=== PATIENT | male | born 1960 | race Caucasian/White ===

== ENCOUNTER 2016-11-14 09:49 | Outpatient (CLI) | payer OTHER | END 2016-11-14 09:50 | disposition critical access hospital (66) | LOC: EMS 09:49 | PROVIDERS: ATTEND Surgery | DX: R11.2 Nausea with vomiting, unspecified (principal); R42 Dizziness and giddiness | CPT/HCPCS: A0425; A0427 ==

== ENCOUNTER 2016-11-14 10:13 | Observation (INO) | payer OTHER ==
[2016-11-14] MEDS ORDERED: MECLIZINE 12.5 MG TABLET PO STA ×2 (10:25→16:54)
[2016-11-14] MEDS ORDERED: ONDANSETRON 4 MG/2 ML VIAL IVP STA ×2 (10:25→15:24)
--- NOTE | 2016-11-14 10:29 | ED Physician Documentation ---
History of Present Illness - Stated complaint Stated Complaint: CP, SOA, N/V - Chief complaint Chief Complaint: General - Additonal information Additional information: hx from pt 56 male Rebecca approx 2 AM had a few min of vertigo and nausea got better then return severe and with vomiting and sweats about 8 AM [facility] sent him to the ER had a JAIN but not ow no fever no new meds recent travel for work to [facility] and [facility] - per pt no [facility] infectious warnings or prophylaxis no CP SOA or cough no focal numbness or weakness no sick contacts no bad food Review of Systems Constitutional: reports: Sweats. denies: Fever, Chills Throat: denies: Sore throat Cardiac: denies: Chest pain / pressure Respiratory: denies: Dyspnea GI: reports: Nausea, Vomiting. denies: Abdominal Pain Neurologic: reports: Other (vertigo). denies: Focal weakness, Numbness, Headache (not now) Endocrine: denies: Easy bruising / bleeding Immunocompromised: denies: Immunocompromised PD PAST MEDICAL HISTORY - Past Medical History Past Medical History: Yes Cardiovascular: Hypertension - Past Surgical History Past Surgical History: Yes General: Hiatal hernia repair - Present Medications Home Medications: Ambulatory Orders Medication Instructions Recorded Confirmed Dextroamphetamine/Amphetamine 5 mg PO DAILY 03/07/13 11/14/16 [Adderall 7.5 mg Tablet] Aspirin [Aspirin EC] 81 mg PO DAILY 11/14/16 11/14/16 - Allergies Allergies/Adverse Reactions: Allergies Allergy/AdvReac Type Severity Reaction Status Date / Time steri strips Allergy Mild Rash Uncoded 03/07/13 16:15 - Social History Does the pt smoke?: No Smoking Status: Never smoker Does the pt drink ETOH?: Yes Does the pt have substance abuse?: No - Immunizations Immunizations are current?: Yes PD ED PE NORMAL - Vitals Vital signs reviewed: Yes - General General: Alert and oriented X 3, Other (pale and cool to touch) - HEENT HEENT: PERRL, EOMI (nystagmus looking right) - Neck Neck: Supple, no meningeal sign - Cardiac Cardiac: RRR - Respiratory Respiratory: No respiratory distress, Clear bilaterally - Abdomen Abdomen: Soft, Non tender - Derm Derm: Other (pale and cool, not diaphoretic now) - Neuro Neuro: Alert and oriented X 3, embalmer/funeral director 2-12 intact, No motor deficit, No sensory deficit, Normal speech Results - Vitals Vitals: Vital Signs - 24 hr 11/14/16 11/14/16 11/14/16 10:15 10:35 13:42 Temperature 34.3 C L Heart Rate 59 L 58 L 73 Respiratory 16 16 16 Rate Blood Pressure 134/79 H 120/76 123/85 H O2 Saturation 97 97 97 11/14/16 11/14/16 14:14 14:19 Temperature Heart Rate 61 Respiratory 17 Rate Blood Pressure 113/54 L 147/88 H O2 Saturation 99 Oxygen O2 Source Room air - EKG (time done) 1038 Rate: Rate (enter#) (56) Rhythm: NSR [place]: Normal Intervals: Normal [place] QRS: Normal Ischemia: Normal ST segments - Labs Labs: Laboratory Tests 11/14/16 11/14/16 11/14/16 10:32 10:32 10:32 WBC 7.6 RBC 4.75 Hgb 14.3 Hct 41.6 L MCV 87.5 MCH 30.0 MCHC 34.3 RDW 13.2 Plt Count 191 MPV 7.5 Neut # 5.2 Lymph # 1.8 [place] # 0.4 Eos # 0.1 Baso # 0.0 Absolute Nucleated RBC 0.00 Nucleated RBC % 0.0 Sodium 138 Potassium 4.2 Chloride 105 Carbon Dioxide 26 Anion Gap 7.0 BUN 19 Creatinine 1.0 Estimated GFR (MDRD) 77 L Glucose 131 H Calcium 8.7 Troponin I < 0.04 - Rads (name of study) CTH Radiology: See rad report (no acute) PD MEDICAL DECISION MAKING - ED course Complexity details: re-evaluated patient ED course: pt with continued sx despite meclizine fluids zofran ofirmev, he is still very vertiginous, nauseated with vomiting whenever he moves, diffusely weak got a CT - no acute sx still severe cannot dc with such severe sx may need MRI if sx persist spoke to hospitalist approx 1640 - will place in obs, pt and family updated as well Departure - Departure Disposition: ED Place in Observation Clinical Impression: Vestibular disequilibrium Discharge Date/Time: 11/14/16 17:14
[2016-11-14] MEDS ORDERED: MECLIZINE 12.5 MG TABLET PO ONE (10:33)
[2016-11-14] MEDS ORDERED: ONDANSETRON 4 MG/2 ML VIAL ONE ×2 (10:33→15:36)
[2016-11-14 10:39] LABS: BASOPHILS % (AUTO) 0.5 %; EOSINOPHILS # (AUTO) 0.1 10^3/uL (0.0-0.7); EOSINOPHILS % (AUTO) 1.5 %; HCT - HEMATOCRIT 41.6 % (42.0-52.0); HGB - HEMOGLOBIN 14.3 g/dL (14.0-18.0); LYMPHOCYTES # (AUTO) 1.8 10^3/uL (1.5-3.5); LYMPHOCYTES % (AUTO) 24.1 %; MEAN CORPUSCULAR HGB CONC 34.3 g/dL (32.0-36.0); MEAN CORPUSCULAR VOLUME 87.5 fL (80.0-94.0); MEAN PLATELET VOLUME 7.5 fL (7.4-11.4); MONOCYTES # (AUTO) 0.4 10^3/uL (0.0-1.0); MONOCYTES % (AUTO) 5.1 %; NEUTROPHILS # (AUTO) 5.2 10^3/uL (1.5-6.6); NEUTROPHILS % (AUTO) 68.8 %; RED BLOOD COUNT 4.75 10^6/uL (4.70-6.10); RED CELL DISTRIBUTION WIDTH 13.2 % (12.0-15.0); UNCORRECTED WHITE BLOOD COUNT 7.6 x10^3/uL; WHITE BLOOD COUNT 7.6 x10^3/uL (4.8-10.8)
[2016-11-14 10:57] LABS: CALCIUM 8.7 mg/dL (8.5-10.3); POTASSIUM 4.2 mmol/L (3.5-5.0)
--- NOTE | 2016-11-14 14:17 | CT Preliminary Report ---
Exam: CT Head W/O IMPRESSION: Negative for acute or focal intracranial abnormality. [facility] SITE ID: [id number]
--- NOTE | 2016-11-14 14:20 | CT Report ---
EXAM: CT HEAD EXAM DATE: 11/14/2016 01:45 PM. CLINICAL HISTORY: Intractable vertigo. COMPARISON: None. TECHNIQUE: Multiaxial CT images were obtained from the foramen magnum to the vertex. IV contrast: Non e. Reformats: Coronal. In accordance with CT protocol optimization, one or more of the following dose reduction techniques w ere utilized for this exam: automated exposure control, adjustment of mA and/or KV based on patient s ize, or use of iterative reconstructive technique. FINDINGS: Parenchyma: No intraparenchymal hemorrhage. No evidence of mass, midline shift, or CT findings of inf arction. Mitchell-white differentiation is distinct. Extraaxial Spaces: Normal for age. No subdural or epidural collections identified. Ventricles: Normal in size and position. Sinuses: Imaged paranasal sinuses, orbits, and mastoids show no significant abnormality. Bones: No evidence of fracture or calvarial defect. Other: None. IMPRESSION: Negative for acute or focal intracranial abnormality. [facility] Referring Provider Line: [phone] SITE ID: [id number]
[2016-11-14] MEDS ORDERED: ACETAMINOPHEN 1,000 MG/100 ML 100 ML IV STA (15:24)
[2016-11-14] MEDS ORDERED: ACETAMINOPHEN 1,000 MG/100 ML 100 ML IV ONE (15:36)
[2016-11-14] MEDS ORDERED: SODIUM CHLORIDE FLUSH 0.9% 10 ML SYRINGE IVP PRN (16:47)
[2016-11-14] MEDS ORDERED: ACETAMINOPHEN 325 MG TABLET PO PRN (16:47)
[2016-11-14] MEDS ORDERED: PROCHLORPERAZINE 10 MG/2 ML VIAL IVP PRN (16:47)
[2016-11-14] MEDS ORDERED: ONDANSETRON 4 MG/2 ML VIAL IVP PRN (16:47)
[2016-11-14] MEDS ORDERED: MECLIZINE 12.5 MG TABLET PO PRN (16:56)
--- NOTE | 2016-11-14 17:05 | HISTORY & PHYSICAL EXAMINATION ---
Chief Complaint - Chief Complaint Chief Complaint: vertigo History of Present Illness - Admitted From Admitted From:: emergence department - History Obtained From History obtained from: patient - History of Present Illness HPI Comment/Other: This is a 56-year-old male with a past medical history significant for HTN, chronic headache, who present emergence department for evaluation of vertigo. Pt report he recently had business travel to [facility] two countries [facility] from 10/18/16 to 11/01/16. He felt fine until today morning about 2:30 am, he felt his house spinning and follow up with strong nausea. Then at today morning about 8am, he had a extensive sweating. He works at [employer], the [employer] sent him to this Emergence department. Patient report he had a second vertigo when he was sent to do CT test in the ER, which last a few minutes with strong nausea but no vomiting. Patient report he had history of chronic headache but today he did not have a strong headache. Patient denies fever, chill, chest pain, shortness of breathing, abdominal pain, diarrhea, vision changing, urinary issue, focal neurological deficit, brain injury. CT of head is unremarkable. Lab test is unremarkable. Patient's vital is stable. Patient is admitted in observation floor for further evaluation of vertigo History - Past Medical History Cardiovascular: reports: Hypertension - Past Surgical History General: reports: Hiatal hernia repair - Family & Social History Family History: Mother: Alive and Well (Mom with thyroid problem, Daddy with skin cancer problem), Father: Alive and Well Family History Comment/Other: Pt with his is living the [place]. pt is working at [employer], Patient had two children Living arrangement: At home Living Situation: With spouse/s.o. Social History Notes: pt denies smoking, alcohol, illicit drug abuse - Substance History Use: Uses substance without health or social issues: NONE Dependence: Experiences withdrawal or developed tolerances: NONE - POLST Patient has POLST: No POLST Status: Full Code Meds/Allgy - Home Medications Home Medications: Ambulatory Orders Medication Instructions Recorded Confirmed Dextroamphetamine/Amphetamine 5 mg PO DAILY 03/07/13 11/14/16 [Adderall 7.5 mg Tablet] Aspirin [Aspirin EC] 81 mg PO DAILY 11/14/16 11/14/16 - Allergies Allergies/Adverse Reactions: Allergies Allergy/AdvReac Type Severity Reaction Status Date / Time steri strips Allergy Mild Rash Uncoded 03/07/13 16:15 Review of Systems - Constitutional Constitutional: reports: Diaphoresis. denies: Fever, Chills, Malaise, Weakness , Poor appetite, Night sweats, Weight gain, Weight loss - Eyes Eyes: denies: Pain, Irritation, Amaurosis, Blurred vision, Spots in vision, Field loss, Vision loss, Dipolpia - Ears, Nose & Throat Ears, Nose & Throat: reports: Vertigo. denies: Ear pain, Hearing loss, Hearing aids, Tinnitus, Nasal pain, Nasal discharge, Nosebleeds, Nasal congestion, Postnasal drainage, Sore throat, Hoarseness, Bleeding gums - Cardiovascular Cariovascular: denies: Irregular heart rate, Palpitations, Chest pain, Edema, Lightheadedness, Syncope, Exertional dyspnea, Decr. exercise tolerance - Respiratory Respiratory: denies: Cough, Sputum production, Wheezing, Snoring, Hemoptysis, Orthopnea, SOB at rest, SOB with exertion - Gastrointestinal Gastrointestinal: reports: Nausea. denies: Abdominal pain, Abdominal distention , Constipation, Diarrhea, Change in bowel habits, Rectal bleeding, Black stools , Bloody stools, Vomiting, [place] blood emesis, Coffee grounds emesis, Reflux/ heartburn, Bloating, Poor appetite - Genitourinary Genitourinary: denies: Dysuria, Frequency, Urgency, Hematuria, Incontinence, Flank pain, Nocturia, Urethral discharge - Musculoskeletal Musculoskeletal: denies: Muscle pain, Back pain, Muscle aches, Stiffness, Limited range of motion, Muscle weakness, Gout, Joint pain, Joint swelling - Integumentary Integumentary: denies: Rash, Pruritis, Lesions, Dryness, Lumps, Pigment changes - Neurological Neurological: denies: General weakness, Focal weakness, Headache, Dizziness, Numbness, Memory problems, Pre-existing deficit, Abnormal gait, Seizures, Incoordination, Slurred speech - Psychiatric Psychiatric: denies: Depression, Anxiety, Suicidal, Delusions, Hallucinations, Homicidal - Endocrine Endocrine: denies: Polyuria, Polydypsia, Polyphagia, Intolerance to cold, Intolerance to heat - Hematologic/Lymphatic Hematologic/Lymphatic: denies: Anemia, Bruising, Petechiae, Blood clots, Lymphadenopathy, Bleeding tendencies, Recurrent infections Exam - Vital Signs Reviewed Vital Signs: Yes - Physical Exam General Appearance: positive: No acute distress, Alert. negative: Lethargic Eyes Bilateral: positive: Normal inspection, PERRL, No lid inflammation, Conjunctivae nml ENT: positive: ENT inspection nml, Pharynx nml, No signs of dehydration. negative: Purulent nasal drainage, Pharyngeal erythema, Oral lesions Neck: positive: Nml inspection, Thyroid nml, No JVD, Trachea midline. negative : Thyromegaly, Lymphadenopathy (R), Lymphadenopathy (L), Stiff neck, Swelling/ bruising, Tracheal deviation Respiratory: positive: Chest non-tender, No respiratory distress, Breath sounds nml. negative: Wheezes, Rales, Rhonchi Cardiovascular: positive: Regular rate & rhythm, No murmur, No gallop. negative : Irregularly irregular, Extrasystoles, Tachycardia, Bradycardia, Systolic murmur, Diastolic murmur Peripheral Pulses: positive: 2+ Abdomen: positive: Non-tender, No organomegaly, Nml bowel sounds, No distention. negative: Tenderness, Guarding, Rebound Back: positive: Nml inspection. negative: CVA tenderness (R), CVA tenderness (L ) Skin: positive: Color nml, No rash, Warm, Dry. negative: Cyanosis, Skin rash Extremities: positive: Non-tender, Full ROM, Nml appearance. negative: Pedal edema, Calf tenderness, Ousmane's sign/cords Neurologic/Psychiatric: positive: Oriented x3, Motor nml, Sensation nml, Mood/ affect nml. negative: Weakness, Sensory loss, Facial droop, Slurred/abnml speech, Depressed mood/affect Conclusion/Plan - Problem List (1) Vertigo Conclusion/Plan: most common forum, benign paroxysmal position vertigo, order MRI to see if another etiology fall precaution Antivert PRN (2) Nausea alone Conclusion/Plan: vertigo commonly cause nausea PRN zofran, Compazine clear diet IVF (3) HTN (hypertension) Conclusion/Plan: stable, will resume home meds after reconciliation (4) Headache Conclusion/Plan: chronic but stable today, Tylenol PRN (5) DVT prophylaxis Conclusion/Plan: SCD, pt without mobility limitation - Lab Results Fish Bones: 11/14/16 10:32 11/14/16 10:32 Issues/Core Measures - Anticipated LOS Anticipated Stay Length: Less than 2 midnights (expected less than 2 nights)
[2016-11-14] MEDS: SODIUM CHLORIDE FLUSH 0.9% 10 ML SYRINGE IVP SCH (18:06)
[2016-11-14] MEDS: SODIUM CHLORIDE 0.9% 1,000 ML IV SCH (18:06)
[2016-11-15] MEDS: SODIUM CHLORIDE 0.9% 1,000 ML IV SCH (04:03)
[2016-11-15 05:50] LABS: BASOPHILS % (AUTO) 0.3 %; EOSINOPHILS # (AUTO) 0.1 10^3/uL (0.0-0.7); EOSINOPHILS % (AUTO) 1.1 %; HCT - HEMATOCRIT 41.5 % (42.0-52.0); HGB - HEMOGLOBIN 14.4 g/dL (14.0-18.0); LYMPHOCYTES # (AUTO) 1.9 10^3/uL (1.5-3.5); MEAN CORPUSCULAR HEMOGLOBIN 30.7 pg (27.0-31.0); MEAN CORPUSCULAR HGB CONC 34.6 g/dL (32.0-36.0); MEAN CORPUSCULAR VOLUME 88.8 fL (80.0-94.0); MEAN PLATELET VOLUME 7.9 fL (7.4-11.4); MONOCYTES # (AUTO) 0.5 10^3/uL (0.0-1.0); MONOCYTES % (AUTO) 4.7 %; NEUTROPHILS # (AUTO) 7.5 10^3/uL (1.5-6.6); NEUTROPHILS % (AUTO) 74.9 %; RED BLOOD COUNT 4.68 10^6/uL (4.70-6.10); RED CELL DISTRIBUTION WIDTH 13.5 % (12.0-15.0)
[2016-11-15 05:59] LABS: ALBUMIN/GLOBULIN RATIO 1.3 (1.0-2.2); BILIRUBIN,TOTAL 1.1 mg/dL (0.2-1.0); CALCIUM 8.5 mg/dL (8.5-10.3); CREATININE 0.9 mg/dL (0.6-1.2); MAGNESIUM 1.9 mg/dL (1.7-2.8); POTASSIUM 4.4 mmol/L (3.5-5.0); TOTAL PROTEIN 6.1 g/dL (6.7-8.2)
[2016-11-15] MEDS: SODIUM CHLORIDE FLUSH 0.9% 10 ML SYRINGE IVP SCH ×2 (06:14→13:14)
[2016-11-15] MEDS ORDERED: POLYETHYLENE GLYCOL 3350 17 GM PACKET PO SCH (09:00)
[2016-11-15] MEDS ORDERED: ASPIRIN EC 81 MG TABLET PO SCH (09:00)
[2016-11-15] MEDS ORDERED: FAMOTIDINE 20 MG TABLET PO SCH (09:00)
--- NOTE | 2016-11-15 13:00 | MRI Preliminary Report ---
Exam: MRI Brain W/O IMPRESSION: 1. Normal noncontrast brain MRI. No evidence of infarct, hemorrhage, or mass lesion. SITE ID: [id number]
--- NOTE | 2016-11-15 13:03 | MRI Report ---
EXAM: MRI BRAIN WITHOUT CONTRAST EXAM DATE: 11/15/2016 10:52 AM. CLINICAL HISTORY: 56-year-old man with vertigo. COMPARISON: Noncontrast head CT done 1 day prior. TECHNIQUE: Multiplanar, multisequence T1-weighted and fluid-sensitive MR sequences of the brain were performed. Sequences optimized for routine evaluation. Other: High-resolution axial images were acqui red through the internal auditory canals. IV Contrast: None. FINDINGS: Parenchyma: No evidence of acute infarct on diffusion weighted sequence. The supratentorial and infra tentorial parenchyma demonstrates normal signal intensity on T1- and T2-weighted sequences. No eviden ce of prior hemorrhage on susceptibility weighted sequence. Pituitary: Unremarkable. Ventricles and Extra-axial Spaces: Ventricles are symmetric and normal in size for age. Extra-axial s paces are unremarkable. Internal Auditory Canals: Patent without mass lesion bilaterally. Cochleas and vestibular apparatuses demonstrate normal fluid signal intensity. Orbits: Unremarkable. Sinuses: Mild scattered mucosal thickening is present in the paranasal sinuses. Mastoid air cells are clear. Major Vascular Flow Voids: Intact. IMPRESSION: 1. Normal noncontrast brain MRI. No evidence of infarct, hemorrhage, or mass lesion. Referring Provider Line: [phone] SITE ID: [id number]
--- NOTE | 2016-11-15 13:16 | Discharge Plan ---
Discharge Plan Disposition: 01 Home, Self Care Condition: Stable Diet: Regular Activity Restrictions: Activity as Tolerated Shower Restrictions: No Driving Restrictions: No Weight Bearing: Full Weight Additional Instructions or Follow Up instructions: May see PCP in two weeks Follow-Up Care: [facility] - Medical (pt state he has a PCP in [place], He will follow up.) No Smoking: If you smoke, Please STOP! Call for help.
--- NOTE | 2016-11-15 13:27 | DISCHARGE SUMMARY ---
Discharge Summary Admit Date: 11/14/16 Discharge Date: 11/15/16 Discharging Provider: Concepcion Primary Care Provider: PCP in [place] from pt's report Condition at Discharge: Stable Discharge Disposition: 01 Home, Self Care Discharge Facility Name: home - DIAGNOSES Admission Diagnoses: (1) Vertigo (2) Nausea alone (3) HTN (hypertension) (4) Headache Discharge Diagnoses with Status of Each Condition: (1) Vertigo resolved, pt reported to me (2) Nausea alone resolved, pt reported to me, and tolerated the solid food (3) HTN (hypertension) stable (4) Headache stable - HPI History of Present Illness: please refer from my HPI from 11/14/16 as the following: This is a 56-year-old male with a past medical history significant for HTN, chronic headache, who present emergence department for evaluation of vertigo. Pt report he recently had business travel to [facility] two countries [facility] from 10/18/16 to 11/01/16. He felt fine until today morning about 2:30 am, he felt his house spinning and follow up with strong nausea. Then at today morning about 8am, he had a extensive sweating. He works at [employer], the [employer] sent him to this Emergence department. Patient report he had a second vertigo when he was sent to do CT test in the ER, which last a few minutes with strong nausea but no vomiting. Patient report he had history of chronic headache but today he did not have a strong headache. Patient denies fever, chill, chest pain, shortness of breathing, abdominal pain, diarrhea, vision changing, urinary issue, focal neurological deficit, brain injury. CT of head is unremarkable. Lab test is unremarkable. Patient's vital is stable. Patient is admitted in observation floor for further evaluation of vertigo - HOSPITAL COURSE Hospital Course: Pt was admitted for evaluation and treatemtn of vertigo. CT of head is unremarkable. The following MRI test is unremarkable as well. The test result was reviewed with patient as well. The lab test is unremarkable. Vital sign is stable. Patient report he feel great, no vertigo and nausea any more when I assessed him at the morning. Pt is prescribed Antivert medication as needed, PRN , for D/C to home. All pt's and his family's questions are answered. - ALLERGIES Allergies/Adverse Reactions: Allergies Allergy/AdvReac Type Severity Reaction Status Date / Time steri strips Allergy Mild Rash Uncoded 03/07/13 16:15 - MEDICATIONS Home Medications: Ambulatory Orders Medication Instructions Recorded Confirmed Dextroamphetamine/Amphetamine 5 mg PO DAILY 03/07/13 11/14/16 [Adderall 7.5 mg Tablet] Aspirin [Aspirin EC] 81 mg PO DAILY 11/14/16 11/14/16 - PHYSICAL EXAM AT DISCHARGE General Appearance: positive: No acute distress, Alert. negative: Lethargic Eyes Bilateral: positive: Normal inspection, PERRL, EOMI, No lid inflammation, Conjunctivae nml ENT: positive: ENT inspection nml, Pharynx nml, No signs of dehydration. negative: Purulent nasal drainage, Pharyngeal erythema, Oral lesions Neck: positive: Nml inspection, Thyroid nml, No JVD, Trachea midline. negative : Thyromegaly, Lymphadenopathy (R), Lymphadenopathy (L), Stiff neck, Carotid bruit, Tracheal deviation Respiratory: positive: Chest non-tender, No respiratory distress, Breath sounds nml. negative: Wheezes, Rales, Rhonchi Cardiovascular: positive: Regular rate & rhythm, No murmur, No gallop. negative : Irregularly irregular, Extrasystoles, Tachycardia, Bradycardia, JVD present, Systolic murmur, Diastolic murmur Peripheral Pulses: positive: 2+ Abdomen: positive: Non-tender, No organomegaly, Nml bowel sounds, No distention. negative: Tenderness, Guarding, Rebound, Mass Back: positive: Nml inspection. negative: CVA tenderness (R), CVA tenderness (L ) Skin: positive: Color nml, No rash, Warm, Dry. negative: Cyanosis, Diaphoresis , Pallor, Skin rash Extremities: positive: Non-tender, Full ROM, Nml appearance. negative: Pedal edema, Calf tenderness, Joint swelling, Ousmane's sign/cords Neurologic/Psychiatric: positive: Oriented x3, Motor nml, Sensation nml, Mood/ affect nml. negative: Weakness, Sensory loss, Facial droop, Slurred/abnml speech, Depressed mood/affect - LABS Result Diagrams: 11/15/16 04:51 11/15/16 04:51 - DIAGNOSTIC IMAGING Diagnostic Imaging Results: Final report reviewed Diagnostic Imaging Results Comments: all images were reviewed with pt. - FOLLOW UP Follow Up: pt is advised to see his PCP in [place] in one to two week. Pt is also advised, should symptom return or worsen, call 911 or go to the nearest Emergence department to seek help. Pt is welcomed to our service as needed. Pt is prescribed Antivert as needed, PRN, D/C to his home. - TIME SPENT Time Spent in Discharge (Minutes): 40
[2016-11-15 14:17] VITALS: BP 137/88
--- NOTE | 2016-11-15 17:01 | ED Physician Documentation ---
ED Addendum - Addendum Addendum: 11/15/16 16:59 Pts daughter called to request zofran for home. Was not d/c from the hospital with zofran for vomiting. Will rx zofran 4mg PO q6hrs PRN vomiting. #20 no refills. Departure - Departure Disposition: ED Place in Observation Clinical Impression: Vestibular disequilibrium Condition: Stable Discharge Date/Time: 11/14/16 17:14
== END 2016-11-15 14:30 | disposition home or self-care (01) ==
LOC: EDUNIT# → ED 10:13 → OBS 16:47
PROVIDERS: ADMIT Nurse Practitioner Gerontology; ATTEND Nurse Practitioner Gerontology
DX: R42 Dizziness and giddiness (principal); R11.0 Nausea; R51 Headache; I10 Essential (primary) hypertension; Z79.82 Long term (current) use of aspirin; Z79.899 Other long term (current) drug therapy
CPT/HCPCS: 36415; 70450; 70551; 80048; 80053; 83735; 84484; 85025; 93005; 96361; 96365; 96375; 96376; 99284; 99285; A9270; G0378; J0131

== ENCOUNTER 2018-06-17 10:40 | Day surgery (SDC) | payer OTHER ==
[2018-06-17] MEDS ORDERED: LACTATED RINGERS 1,000 ML IV ONE ×2 (11:00→14:30)
[2018-06-17] MEDS ORDERED: MIDAZOLAM 2 MG/2 ML VIAL IVP ONE (13:52)
[2018-06-17] MEDS ORDERED: fentaNYL 250 MCG/5 ML VIAL IVP ONE (13:52)
[2018-06-17 15:13] VITALS: BP 115/86
== END 2018-06-17 10:41 | disposition home or self-care (01) ==
LOC: SDS 10:40
PROVIDERS: ATTEND Internal Medicine Gastroenterology
PROC: 0DBL8ZZ Excision of Transverse Colon, Via Natural or Artificial Opening Endoscopic (ICD-10-PCS; 2018-06-17)
PROC: 0DBP8ZZ Excision of Rectum, Via Natural or Artificial Opening Endoscopic (ICD-10-PCS; 2018-06-17)
PROC: 3E0H8GC Introduction of Other Therapeutic Substance into Lower GI, Via Natural or Artificial Opening Endoscopic (ICD-10-PCS; 2018-06-17)
PROC: 0DBK8ZZ Excision of Ascending Colon, Via Natural or Artificial Opening Endoscopic (ICD-10-PCS; principal; 2018-06-17 12:15)
DX: Z12.11 Encounter for screening for malignant neoplasm of colon (principal); K63.3 Ulcer of intestine; D12.3 Benign neoplasm of transverse colon; D12.8 Benign neoplasm of rectum; K63.9 Disease of intestine, unspecified; K57.30 Diverticulosis of large intestine without perforation or abscess without bleeding; Z87.891 Personal history of nicotine dependence
CPT/HCPCS: 45380; 45381; J3010; J7120

== ENCOUNTER 2018-07-08 09:39 | Day surgery (SDC) | payer OTHER ==
[2018-07-08] MEDS ORDERED: LACTATED RINGERS 1,000 ML IV ONE (10:01)
[2018-07-08] MEDS ORDERED: MIDAZOLAM 2 MG/2 ML VIAL IVP ONE (10:44)
[2018-07-08] MEDS ORDERED: fentaNYL 250 MCG/5 ML VIAL IVP ONE (10:44)
[2018-07-08 11:28] VITALS: BP 101/63
== END 2018-07-08 09:40 | disposition home or self-care (01) ==
LOC: SDS 09:39
PROVIDERS: ATTEND Internal Medicine Gastroenterology
PROC: 0DBL8ZX Excision of Transverse Colon, Via Natural or Artificial Opening Endoscopic, Diagnostic (ICD-10-PCS; 2018-07-08)
PROC: 0DBN8ZZ Excision of Sigmoid Colon, Via Natural or Artificial Opening Endoscopic (ICD-10-PCS; 2018-07-08)
PROC: 0DBN8ZX Excision of Sigmoid Colon, Via Natural or Artificial Opening Endoscopic, Diagnostic (ICD-10-PCS; principal; 2018-07-08 11:30)
DX: K63.3 Ulcer of intestine (principal); D12.5 Benign neoplasm of sigmoid colon; K63.5 Polyp of colon; K21.9 Gastro-esophageal reflux disease without esophagitis; K44.9 Diaphragmatic hernia without obstruction or gangrene; I10 Essential (primary) hypertension; R42 Dizziness and giddiness; M19.90 Unspecified osteoarthritis, unspecified site; F32.9 Major depressive disorder, single episode, unspecified; M51.36 Other intervertebral disc degeneration, lumbar region; F90.9 Attention-deficit hyperactivity disorder, unspecified type
CPT/HCPCS: 45380; 45385; J3010; J7120